=== PATIENT | female | born 1995 | race Caucasian/White ===

== ENCOUNTER 2021-06-03 17:51 | Emergency (ER) | payer OTHER ==
[2021-06-03 18:25] VITALS: BP 122/85; PULSE 82; TEMP 98.3; BMI 20.3
== END 2021-06-03 22:16 | disposition home or self-care (01) ==
LOC: JER 17:51
DX: R07.89 Other chest pain (principal); M79.602 Pain in left arm
CPT/HCPCS: 36415; 84484; 93005; 93010; 99284-25

== ENCOUNTER 2021-07-20 06:01 | Emergency (ER) | payer OTHER ==
[2021-07-20] MEDS ORDERED: DEXAMETHASONE SOD PHOSPHATE 10 MG/1 ML VIAL IM ONE (06:07)
[2021-07-20 06:24] VITALS: BP 122/81; PULSE 92; TEMP 97.6; BMI 20.5
[2021-07-20] MEDS ORDERED: DEXAMETHASONE SOD PHOSPHATE 10 MG/1 ML VIAL ONE (06:28)
[2021-07-20] MEDS ORDERED: FAMOTIDINE 20 MG TABLET PO ONE (07:56)
[2021-07-20] MEDS ORDERED: LORATADINE 10 MG TABLET PO ONE (07:56)
[2021-07-20] MEDS ORDERED: LORATADINE 10 MG TABLET ONE (08:11)
[2021-07-20] MEDS ORDERED: FAMOTIDINE 20 MG TABLET ONE (08:11)
== END 2021-07-20 09:27 | disposition home or self-care (01) ==
LOC: JER 06:01
PROC: 3E0233Z Introduction of Anti-inflammatory into Muscle, Percutaneous Approach (ICD-10-PCS; principal; 2021-07-20)
DX: R21 Rash and other nonspecific skin eruption (principal)
CPT/HCPCS: 99284-25; J1100

== ENCOUNTER 2021-07-20 22:11 | Emergency (ER) | payer OTHER ==
[2021-07-20 22:33] VITALS: BP 117/84; PULSE 83; TEMP 98.4; BMI 20.5
[2021-07-20] MEDS ORDERED: diphenhydrAMINE HCL 25 MG CAPSULE (FP) PO ONE (22:44)
[2021-07-20] MEDS ORDERED: diphenhydrAMINE HCL 50 MG CAPSULE PO ONE (22:45)
== END 2021-07-20 22:58 | disposition home or self-care (01) ==
LOC: JER 22:11 → JERFT 22:11
DX: R21 Rash and other nonspecific skin eruption (principal)
CPT/HCPCS: 99283-25

== ENCOUNTER 2021-08-11 19:05 | Emergency (ER) | payer OTHER ==
[2021-08-11 19:22] VITALS: BP 138/81; PULSE 82; TEMP 97.8; BMI 20.3
[2021-08-11] MEDS ORDERED: FAMOTIDINE 20 MG/50 ML IVPB 20 MG/50 ML MG IVPB ONE ×2 (20:33→20:58)
[2021-08-11] MEDS ORDERED: DEXAMETHASONE SOD PHOSPHATE 10 MG/1 ML VIAL IVPUSH ONE (20:33)
[2021-08-11] MEDS ORDERED: DEXAMETHASONE SOD PHOSPHATE 10 MG/1 ML VIAL ONE (20:57)
== END 2021-08-11 22:52 | disposition home or self-care (01) ==
LOC: JERFT 19:05 → JER 19:05 → JERFT 22:52
PROC: 3E033GC Introduction of Other Therapeutic Substance into Peripheral Vein, Percutaneous Approach (ICD-10-PCS; principal; 2021-08-11)
PROC: 3E033GC Introduction of Other Therapeutic Substance into Peripheral Vein, Percutaneous Approach (ICD-10-PCS; 2021-08-11)
PROC: 3E033GC Introduction of Other Therapeutic Substance into Peripheral Vein, Percutaneous Approach (ICD-10-PCS; 2021-08-11)
DX: T78.40XA Allergy, unspecified, initial encounter (principal)
CPT/HCPCS: 99285-25; J1100

== ENCOUNTER 2021-09-18 05:52 | Emergency (ER) | payer OTHER ==
[2021-09-18 06:10] VITALS: BP 118/80; PULSE 88; TEMP 98.5; BMI 20.3
[2021-09-19 12:06] LABS: SARS-CoV-2 NAA Not Detected (Not Detected)
== END 2021-09-18 06:50 | disposition home or self-care (01) ==
LOC: JER 05:52
DX: R09.81 Nasal congestion (principal); R05.1 Acute cough
CPT/HCPCS: 87804; 99283-25; C9803-CS; U0003; U0005

== ENCOUNTER 2022-03-20 00:22 | Emergency (ER) | payer OTHER ==
[2022-03-20 00:35] VITALS: BP 136/88; PULSE 79; RESP 18; TEMP 98.2; BMI 20.3
== END 2022-03-20 02:48 | disposition home or self-care (01) ==
LOC: JER 00:22
DX: R07.89 Other chest pain (principal)
CPT/HCPCS: 93005; 93010; 99283-25

== ENCOUNTER 2022-06-04 23:29 | Emergency (ER) | payer OTHER ==
[2022-06-04 23:40] VITALS: BP 142/90; PULSE 90; RESP 18; TEMP 98.2; BMI 21.6
[2022-06-05] MEDS ORDERED: ALBUTEROL SO4 2.5/IPRATROPIUM 0.5 INH SOL 3 ML VIAL.NEB. NEB ONE ×2 (01:12→01:16)
[2022-06-05] MEDS ORDERED: DEXAMETHASONE SOD PHOSPHATE 10 MG/1 ML VIAL IM ONE (01:59)
[2022-06-05] MEDS ORDERED: DEXAMETHASONE SOD PHOSPHATE 10 MG/1 ML VIAL ONE (02:01)
[2022-06-05] MEDS ORDERED: ACETAMINOPHEN 1000 MG/100 ML BAG IVPB ONE (02:30)
[2022-06-05 02:34] LABS: BASO % 0.3 % (0-2.0); EOS % 3.2 % (0-4.5); HEMATOCRIT 38.2 % (32.4-45.2); HEMOGLOBIN 12.5 GM/dL (10.7-15.3); MCH 28.8 pg (25.7-33.7); MCHC 32.8 g/dl (32.0-36.0); MEAN CELL VOLUME 87.7 fl (80-96); MEAN PLT VOLUME 8.2 fl (7.5-11.1); NEUT % 70.5 % (42.8-82.8); PLATELET COUNT 203 10^3/uL (134-434); RBC 4.36 M/mm3 (3.60-5.2); RDW 13.4 % (11.6-15.6); WHITE BLOOD COUNT 8.6 K/mm3 (4.0-10.0)
[2022-06-05] MEDS ORDERED: ACETAMINOPHEN INJECTION 100 ML IVPB ONE (02:35)
[2022-06-05 02:57] LABS: CHLORIDE 109 mmol/L (98-107); SODIUM 141 mmol/L (136-145)
[2022-06-05 02:59] LABS: CALCIUM 8.9 mg/dL (8.5-10.1)
[2022-06-05 03:00] LABS: ALBUMIN 3.2 g/dl (3.4-5.0); ANION GAP 10 MMOL/L (8-16); BLOOD UREA NITROGEN 8.4 mg/dL (7-18); CO2 23 mmol/L (21-32); GLUCOSE,RANDOM 102 mg/dL (74-106)
[2022-06-05 03:03] LABS: CREATININE 0.6 mg/dL (0.55-1.3); SGOT/AST 11 U/L (15-37); SGPT/ALT 18 U/L (13-61)
[2022-06-05 03:04] LABS: TOT PROT 6.8 g/dl (6.4-8.2)
[2022-06-05 03:05] LABS: BILIRUBIN,TOTAL 0.2 mg/dL (0.2-1)
[2022-06-05 03:06] LABS: ALK PHOS 53 U/L (45-117)
== END 2022-06-05 04:44 | disposition home or self-care (01) ==
LOC: JER 23:29
PROC: 3E033GC Introduction of Other Therapeutic Substance into Peripheral Vein, Percutaneous Approach (ICD-10-PCS; principal; 2022-06-04)
PROC: 3E023GC Introduction of Other Therapeutic Substance into Muscle, Percutaneous Approach (ICD-10-PCS; principal; 2022-06-04)
PROC: 3E0F7GC Introduction of Other Therapeutic Substance into Respiratory Tract, Via Natural or Artificial Opening (ICD-10-PCS; 2022-06-04)
DX: R05.9 Cough, unspecified (principal); R07.0 Pain in throat
CPT/HCPCS: 0241U-QW; 36415; 71045-TC-FY; 80053; 84484; 84703; 85025; 85379; 93005; 93010; 99285-25; J1100

== ENCOUNTER 2022-08-14 18:07 | Emergency (ER) | payer OTHER ==
[2022-08-14 18:25] VITALS: BP 126/87; PULSE 92; RESP 18; TEMP 98.3; BMI 21.9
[2022-08-14] MEDS ORDERED: PANTOPRAZOLE SODIUM 40 MG VIAL IVPUSH ONE (20:10)
[2022-08-14] MEDS ORDERED: MAG HYDROX/AL HYDROX/SIMETH 30 ML UNIT-DOSE CUP PO ONE (20:10)
[2022-08-14] MEDS ORDERED: MAG HYDROX/AL HYDROX/SIMETH 30 ML UNIT-DOSE CUP ONE (20:24)
[2022-08-14] MEDS ORDERED: PANTOPRAZOLE SODIUM 40 MG/100 ML BAG IVPB ONE (20:24)
[2022-08-14 21:05] LABS: BASO % 0.4 % (0-2.0); EOS % 4.3 % (0-4.5); HEMATOCRIT 39.6 % (32.4-45.2); HEMOGLOBIN 13.5 GM/dL (10.7-15.3); LYMPH % 49.3 % (8-40); MCH 28.9 pg (25.7-33.7); MCHC 34.1 g/dl (32.0-36.0); MEAN CELL VOLUME 84.9 fl (80-96); MEAN PLT VOLUME 8.7 fl (7.5-11.1); MONO % 7.9 % (3.8-10.2); NEUT % 38.1 % (42.8-82.8); PLATELET COUNT 206 10^3/uL (134-434); RBC 4.66 M/mm3 (3.60-5.2); RDW 13.4 % (11.6-15.6); WHITE BLOOD COUNT 4.4 K/mm3 (4.0-10.0)
[2022-08-14 21:18] LABS: INR 1.03 (0.83-1.09)
[2022-08-14 21:21] LABS: ACTIVATED PTT 27.6 SECONDS (25.2-36.5)
[2022-08-14 21:29] LABS: CALCIUM 9.2 mg/dL (8.5-10.1)
[2022-08-14 21:30] LABS: ALBUMIN 3.5 g/dl (3.4-5.0); BLOOD UREA NITROGEN 14.4 mg/dL (7-18)
[2022-08-14 21:33] LABS: CREATININE 0.7 mg/dL (0.55-1.3)
[2022-08-14 21:34] LABS: TOT PROT 7.4 g/dl (6.4-8.2)
[2022-08-14 21:35] LABS: BILIRUBIN,TOTAL 0.7 mg/dL (0.2-1)
== END 2022-08-15 01:25 | disposition home or self-care (01) ==
LOC: JER 18:07
PROC: 3E033GC Introduction of Other Therapeutic Substance into Peripheral Vein, Percutaneous Approach (ICD-10-PCS; principal; 2022-08-14)
DX: R07.2 Precordial pain (principal); K20.90 Esophagitis, unspecified without bleeding
CPT/HCPCS: 36415; 71046-TC-FY; 71250-TC; 80053; 83690; 84484; 84703; 85025; 85610; 85730; 86850; 86900; 86901; 93005; 93010; 99285-25

== ENCOUNTER 2022-10-18 09:57 | Emergency (ER) | payer OTHER ==
[2022-10-18 10:05] VITALS: BP 140/90; PULSE 87; RESP 20; TEMP 98.1; BMI 22.9
== END 2022-10-18 11:21 | disposition home or self-care (01) ==
LOC: JERFT 09:57
DX: J45.909 Unspecified asthma, uncomplicated (principal); R05.9 Cough, unspecified; R09.81 Nasal congestion; R50.9 Fever, unspecified; R09.3 Abnormal sputum; J98.8 Other specified respiratory disorders; U07.1 COVID-19
CPT/HCPCS: 0241U-QW; 99283-25

== ENCOUNTER 2023-02-07 19:27 | Emergency (ER) | payer OTHER ==
[2023-02-07 19:37] VITALS: BP 140/93; PULSE 83; RESP 16; TEMP 98.2; BMI 23.3
[2023-02-07] MEDS ORDERED: ACETAMINOPHEN 325 MG TABLET (FP) PO ONE (20:37)
[2023-02-07] MEDS ORDERED: ACETAMINOPHEN 325 MG TABLET (FP) ONE (21:43)
== END 2023-02-08 00:24 | disposition home or self-care (01) ==
LOC: JER 19:27
DX: R51.9 Headache, unspecified (principal); M79.602 Pain in left arm; J34.89 Other specified disorders of nose and nasal sinuses; H92.02 Otalgia, left ear; Z20.822 Contact with and (suspected) exposure to COVID-19
CPT/HCPCS: 0241U-QW; 99283-25